=== PATIENT | female | born 1940 | race Hispanic/Latino ===

== ENCOUNTER 2017-08-16 15:34 | Outpatient (CLI) | payer MEDICARE ==
--- NOTE | 2017-08-16 22:00 | XRay Report ---
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 FINDINGS: Degenerative changes of the AC joint glenohumeral joint. No acute fracture seen at this time. No dislocation is identified. Very subtle patchy appearance of the proximal left humerus could reflect very early minimal myeloma infiltration or osteopenic regions versus normal variation medullary architecture in this patient IMPRESSION: No acute fracture left shoulder. Indeterminate to exclude slight infiltrative pathology in the proximal left humeral neck such as myeloma
--- NOTE | 2017-08-16 22:02 | XRay Report ---
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 FINDINGS: Mild swelling left humerus. Slight micro lytic micro cystic appearance of the proximal greater than distal distal humerus nonspecific which could reflect early manifestations of myeloma versus exaggerated bony architecture in this patient. Suspect minor bony infarct distal left humerus. IMPRESSION: Can't exclude slight myeloma infiltration left humerus
--- NOTE | 2017-08-16 22:05 | XRay Report ---
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 Abnormal anterior fat pad sign. Slight bony infarct in the distal left humerus. No convincing infiltrative lytic process seen about the elbow proper. No definite fracture. Bony architectural prominence in the distal left humerus IMPRESSION: Essentially negative left elbow
== END 2017-08-16 15:35 | disposition home or self-care (01) ==
LOC: SPVIMAG 15:34
PROVIDERS: ATTEND Internal Medicine Hematology
DX: M19.012 Primary osteoarthritis, left shoulder (principal); M25.422 Effusion, left elbow; M25.412 Effusion, left shoulder; C90.00 Multiple myeloma not having achieved remission

== ENCOUNTER 2017-10-11 15:22 | Outpatient (CLI) | payer MEDICARE ==
--- NOTE | 2017-10-12 00:01 | XRay Report ---
FINAL REPORT EXAM: XR HUMERUS 2+V LT HISTORY: MULTIPLE MYELOMA NOT HAVING ACHIEVED REMISSION TECHNIQUE: AP and lateral views of the left humerus were obtained and compared to the study of 08/16/2017. FINDINGS: There is no evidence of fracture or soft tissue injury. No definite discrete osteolytic defects are seen. The soft tissues are unremarkable. IMPRESSION: No gross abnormalities.
--- NOTE | 2017-10-12 00:03 | XRay Report ---
FINAL REPORT EXAM: XR SHOULDER 2+V LT HISTORY: LEFT SHOULDER PAIN TECHNIQUE: Four views of the left shoulder were submitted. Comparison is made to the study of 08/16/2017. FINDINGS: There are no definite osteolytic defects. The glenohumeral joint appears intact. There is mild narrowing of the AC joint. The subacromial space appears normal. Soft tissues well maintained IMPRESSION: Mild arthritic changes of the AC joint. Otherwise unremarkable exam.
--- NOTE | 2017-10-12 00:04 | XRay Report ---
FINAL REPORT EXAM: XR ELBOW 3+V LT HISTORY: MULTIPLE MYELOMA NOT HAVING ACHIEVED REMISSION TECHNIQUE: Three views of the left elbow were submitted. Comparison is made study of 08/16/2017. FINDINGS: There is no evidence of fracture or joint effusion. There are no osteolytic defects. The radial head appears intact IMPRESSION: Within normal limits.
--- NOTE | 2017-10-12 00:05 | XRay Report ---
FINAL REPORT EXAM: XR TEMPOROMANDIBULAR JTS HISTORY: tmj pain TECHNIQUE: Lateral open and closed mouth views of each TMJ were obtained. FINDINGS: The TMJs appear normal. There is no evidence of fracture or arthritic changes. IMPRESSION: Unremarkable exam.
== END 2017-10-11 15:23 | disposition home or self-care (01) ==
LOC: SPVIMAG 15:22
PROVIDERS: ATTEND Internal Medicine Hematology
DX: M19.012 Primary osteoarthritis, left shoulder (principal); M26.629 Arthralgia of temporomandibular joint, unspecified side; C90.00 Multiple myeloma not having achieved remission
CPT/HCPCS: 70330

== ENCOUNTER 2018-02-05 11:45 | Outpatient (CLI) | payer MEDICARE ==
--- NOTE | 2018-02-06 13:58 | XRay Report ---
XRAY CHEST TWO VIEWS: 02/05/18 11:45:00 CLINICAL: Cough. COMPARISON: None FINDINGS: Normal heart and pulmonary vasculature. The lungs are normally expanded and clear. No airspace disease or pleural effusion. Aortic tortuosity. Mild degenerative change in the spine. The bones and soft tissues are unremarkable. IMPRESSION: No acute cardiopulmonary process.No CHF or pneumonia.
== END 2018-02-05 11:46 | disposition home or self-care (01) ==
LOC: SPVIMAG 11:45
PROVIDERS: ATTEND Internal Medicine Hematology
DX: R05 Cough (principal); R06.02 Shortness of breath; R50.9 Fever, unspecified; M47.899 Other spondylosis, site unspecified; C90.00 Multiple myeloma not having achieved remission
CPT/HCPCS: 71046